=== PATIENT | female | born 1950 | race Hispanic/Latino ===

== ENCOUNTER 2017-10-10 03:56 | Day surgery (SDC) | payer BC, SELFPAY ==
[2017-10-10] MEDS ORDERED: Morphine 4 MG/ML Carpuject ONE (04:06)
[2017-10-10] MEDS ORDERED: Ondansetron HCl/PF 4 MG/2 ML Vial ONE ×2 (04:06→14:51)
[2017-10-10 04:46] LABS: #Basophils 0.2 thou/uL (0.0-0.2); #Lymphocytes 0.7 thou/uL (1.20-3.40); #Monocytes 1.2 thou/uL (0.11-0.59); #Neutrophils 13.1 thou/uL (1.40-6.50); %Basophils 1.2 % (0.0-1.0); %Eosinophils 0.3 % (0.0-10.0); %Lymphocytes 4.6 % (21.0-51.0); %Monocytes 7.7 % (0.0-10.0); %Neutrophils 86.3 % (42.0-75.0); Mean Corpuscular HGB CONC 34.2 g/dL (32.0-36.0); Mean Corpuscular Hemoglobin 32.8 pg (27.0-31.0); Mean Corpuscular Volume 96.1 fl (81.0-99.0); Mean Platelet Volume 8.3 fL (7.4-10.4); Platelet Count 123 thou/uL (130-400); RBC Distribution Width 12.1 % (11.5-14.5); Red Blood Cell (RBC) Count 3.96 mill/uL (4.20-5.40); White Blood Cell (WBC) Count 15.2 thou/uL (4.8-10.8)
[2017-10-10 04:50] LABS: INR-International Normal Ratio 1.3; Prothrombin Time 16.1 SEC (12.0-14.7)
[2017-10-10 04:51] LABS: PTT 39.9 SEC (22.9-36.1)
[2017-10-10 05:00] LABS: ALT (SGPT) 19 U/L (8-55); AST (SGOT) 22 U/L (5-34); Albumin 3.4 g/dL (3.4-4.8); Alkaline Phosphatase 91 U/L (40-150); Anion Gap 10 mmol/L (10-20); BUN (Urea Nitrogen) 12 mg/dL (9.8-20.1); Bilirubin, Total 1.6 mg/dL (0.2-1.2); CK (CPK) 114 U/L (29-168); Calc. Creatinine Clearance 0 mL/min (70-130); Calcium 8.7 mg/dL (7.8-10.44); Carbon Dioxide 28 mmol/L (23-31); Chloride 99 mmol/L (98-107); Estimated GFR-MDRD 76; Globulin 3.2 g/dL (2.4-3.5); Glucose 155 mg/dL (80-115); Lipase 5 U/L (8-78); Potassium 3.6 mmol/L (3.5-5.1); Protein, Total 6.6 g/dL (6.0-8.3); Sodium 133 mmol/L (136-145)
[2017-10-10 05:03] LABS: CKMB 0.9 ng/mL (0-6.6); Troponin I Less than 0.010 ng/mL (< 0.028)
[2017-10-10] MEDS ORDERED: Levofloxacin 500 mg/D5W 100 ml Premix Bag ONE (07:43)
[2017-10-10] MEDS ORDERED: Ketorolac Tromethamine 30 MG/ML VIAL ONE (07:43)
[2017-10-10] MEDS ORDERED: Scopolamine 1.5 mg/72 hour Patch ONE (07:43)
--- NOTE | 2017-10-10 07:56 | RAD ---
RADIOGRAPH CHEST 1 VIEW: HISTORY: 67-year-old female with chest pain. FINDINGS: Inspiration is shallow, making this a limited study. There is no air space density, pulmonary edema, or pneumothorax. The lateral costophrenic angles are sharp. IMPRESSION: No acute pulmonary findings. randell [] POS: FRANCHESKA
--- NOTE | 2017-10-10 08:05 | HP ---
HISTORY OF PRESENT ILLNESS: Patient is a 67-year-old female who presented to [place] and transferr ed to [facility]. She has had since right upper quadrant pain, back radiation, epi gastric pain, for the past year she has had intermittent symptoms. She had a CAT scan of the abdomen and pelvis in [place] suggesting acute cholecystitis. Ultrasound here revealed bile duct to be no ndilated, multiple gallstones and sludge. Laboratories reveal sodium 133, potassium 3.6, BUN 12, cre atinine 0.76, bilirubin 1.6. AST, ALT, alkaline phosphatase, lipase are normal. White count is 15, hemoglobin 13. In [place], she received Rocephin and Flagyl. There is recorded allergy to PENICIL SAUL, which the family does not know anything about it. The patient is brought over for gallbladder s urgery. ALLERGIES: None known. TOBACCO: None. ALCOHOL: None. MEDICATIONS: Levothyroxine 125 mcg a day, hydrochlorothiazide/lisinopril 12.5/10 mg a day, Meloxicam 15 mg a day, atorvastatin 20 mg a day, esomeprazole 20 mg a day, Naprosyn 500 mg b.i.d. PAST SURGICAL HISTORY: C-sections. PAST MEDICAL HISTORY: Hypertension, lupus. She is not on steroids. REVIEW OF SYSTEMS: Ten point noncontributory. PHYSICAL EXAMINATION: GENERAL: Patient is in no distress. SKIN: Nonjaundiced. LYMPHATICS: Axilla, neck, groins without lymphadenopathy. NEUROLOGICAL: Intact without focal deficit. HEENT: Unremarkable. Sclerae nonicteric. LUNGS: Clear to auscultation. CARDIAC: Regular rate and rhythm without murmur or gallop. ABDOMEN: Soft, tenderness in right upper quadrant with guarding and rebound. Obese abdomen. EXTREMITIES: Unremarkable. LABORATORY DATA: As noted above. ASSESSMENT AND PLAN: 1. Acute cholecystitis. Recommend laparoscopic video cholecystectomy. Risks of infection, bleeding , visceral biliary injury and open procedure discussed. Questions answered. 2. Lupus. 3. Hypertension. 4. Hypothyroidism. 5. Arthritis. Socially, the patient is and lives in [place]. 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 Her youngest son is with her to help in the discussion and translation.
--- NOTE | 2017-10-10 10:27 | ULT ---
PRELIMINARY REPORT/[facility]/EMERGENCY AFTER HOURS PROCEDURE: EXAM: US Abdomen Limited, Right Upper Quadrant CLINICAL HISTORY: 67 years old, female; Pain; Other: Ruq pain TECHNIQUE: Real-time ultrasound of the right upper quadrant with image documentation. COMPARISON: No relevant prior studies available. FINDINGS: The examination is limited secondary to the patient's body habitus. Liver: Question echogenic. Limited visualization Gallbladder: Thick walled gallbladder with gallstones and sludge. Pericholecystic fluid noted. Positi ve sonographic Wiley's sign Common bile duct: Unremarkable as visualized. No stones. No dilation. Pancreas: Limited visualization without definite abnormality. Right kidney: Unremarkable. No stones. No solid mass. No hydronephrosis. IMPRESSION: Limited study with findings suspect for acute cholecystitis. Correlate clinically Question diffuse fatty infiltration of the liver Thank you for allowing us to participate in the care of your patient. Dictated and Authenticated by: Keyshawn Chaney MD 10/10/2017 5:34 AM Central Time ([place] & [place]) FINAL REPORT BY DR. BROWN EMERGENCY AFTER HOURS STUDY ULTRASOUND ABDOMEN LIMITED: (RIGHT UPPER QUADRANT) HISTORY: 67-year-old female with right upper quadrant abdominal pain. FINDINGS: Gallbladder: Distended. Wall thickening up to 6 mm. At least a small amount of sludge. Mild mural morteza ma and mild pericholecystic edema. No definite gallstone identified. Strongly positive sonographic Mu rphy's sign. Common duct: 5 mm. Liver: Slightly coarse echotexture, raising the possibility of hepatocellular disease such as fatty l iver. Pancreas: Nonspecific sonographic appearance, and partially obscured. Right kidney: No hydronephrosis. This report agrees with the preliminary report by [facility]. IMPRESSION: 1. Suspicious for acute cholecystitis, possibly acalculous cholecystitis. 2. Possible hepatic steatosis. ANTHONY Ma POS: FRANCHESKA
--- NOTE | 2017-10-10 11:20 | OP ---
DATE OF PROCEDURE: 10/10/2017 PREOPERATIVE DIAGNOSES: Acute and chronic cholecystitis. The bilirubin 1.6. Other liver function t ests normal. Common bile duct 5 mm on ultrasound. POSTOPERATIVE DIAGNOSES: Acute and chronic cholecystitis. The bilirubin 1.6. Other liver function tests normal. Common bile duct 5 millimeters on ultrasound. PROCEDURE: Laparoscopic video cholecystectomy, failed attempted cholangiogram due to obstructive cys tic duct, acute cholecystitis noted. SURGEON: Dr. Mariano Anderson ANESTHESIA: General. Local 0.25% Marcaine without epinephrine, 30 mL, mixed with 1% Xylocaine with epinephrine, 30 mL. FINDINGS: Acute cholecystitis, unable to cannulate the cystic duct for cholangiogram, felt low risk for choledocholithiasis. Sent home with Levaquin 500 mg a day for 5 days and Ultram for pain exceedi ng that or relieved by Tylenol/Motrin. PROCEDURE: The patient was taken to the operating room where under general anesthesia, abdomen was p repared with ChloraPrep, draped in routine fashion. Local anesthetic mixture infiltrated into skin a nd subcutaneous tissue about each port site. Because of previous infraumbilical incision () right subcostal midclavicular incision made and pneumoperitoneum to 15 mmHg obtained with the Veress needle, replacing it with a 5 port and video laparoscope inserted. Infraumbilical incision made and a 5 port placed and there were only omental adhesions limited infraumbilical and I placed this safel y moving the video laparoscope to this port. Right subxiphoid incision made and 11 port placed. Rig ht lateral subcostal incision made and a 5 port placed. Liver was fatty, consistent with her morbid obesity. Adhesions between the liver and anterior abdominal wall taken down to allow cephalad reflec tion of the liver. Fundus of the gallbladder grasped with some difficulty. The gallbladder wall was thickened and inflamed. Inflammatory adhesions taken down with the gallbladder body and infundibulu m grasped and reflected laterally. Cystic artery and duct dissected free. Critical view obtained. Cystic duct was short and broad, it was dissected free. Attempts to obtain a cholangiogram were unsu ccessful after making an open in the cystic duct. My cholangiocatheter would not thread, after multi ple attempts, this was abandoned. She was felt at low risk to have choledocholithiasis and normal bi le duct caliber and it was felt that her mildly elevated bilirubin was due to her acute cholecystitis . Cystic duct stump clipped and then endolooped after it was divided and cystic artery doubly clippe d proximally and divided, and gallbladder dissected free with densely inflammatory adhesions from the liver bed obtaining good hemostasis prior to division of final peritoneal attachments. Gallbladder placed in Endobag and removed. Irrigant and pneumoperitoneum evacuated after assuring good hemostasi s with the cautery. All instruments removed and all skin incisions approximated with interrupted sub dermal 4-0 Monocryl and DermaGlue applied.
[2017-10-10] MEDS ORDERED: Glycopyrrolate 0.2 MG/ML 5 ML SYRINGE ONE (14:51)
[2017-10-10] MEDS ORDERED: Lidocaine 1% PF 5 ML VIAL ONE (14:51)
[2017-10-10] MEDS ORDERED: Dexamethasone 20 MG/5 ML VIAL ONE (14:51)
[2017-10-10] MEDS ORDERED: Propofol 200 MG/20 ML VIAL ONE (14:51)
== END 2017-10-10 14:30 | disposition home or self-care (01) ==
LOC: ERS 03:56 → SDC 08:35
PROVIDERS: ATTEND Specialist
PROC: 0FT44ZZ Resection of Gallbladder, Percutaneous Endoscopic Approach (ICD-10-PCS; principal; 2017-10-10)
DX: K81.0 Acute cholecystitis (principal); I10 Essential (primary) hypertension; M32.9 Systemic lupus erythematosus, unspecified; E03.9 Hypothyroidism, unspecified; M19.90 Unspecified osteoarthritis, unspecified site; E66.9 Obesity, unspecified; Z79.899 Other long term (current) drug therapy; Z98.891 History of uterine scar from previous surgery
CPT/HCPCS: 36415; 71045; 76001; 76705; 80053; 82550; 82553; 83690; 83880; 84484; 85025; 85610; 85730; 88304; 93005; J0131; J1100; J1885; J1956; J2001; J2270; J2405; J2704